=== PATIENT | female | born 1990 | race Caucasian/White ===

== ENCOUNTER 2020-07-28 18:57 | Observation (INO) | payer MEDICAID ==
[~2020-07-28] VITALS: Ht 162.6 cm; Wt 71.2 kg
[2020-07-28] MEDS ORDERED: VIT1TABL62 PO (19:29)
[2020-07-28] MEDS ORDERED: VIT1CAPS28 PO (19:29)
[2020-07-28] MEDS ORDERED: PREN-182 MT (19:29)
[2020-07-28] MEDS ORDERED: FERR325T6 PO (19:29)
[2020-07-28] MEDS: BUTORPHANOL TARTRATE 2 MG/ML VIAL IV PRN ×3 (19:34→22:31)
[2020-07-28] MEDS: LACTATED RINGERS 1,000 ML IV SCH ×2 (19:35→21:12)
[2020-07-28] MEDS ORDERED: ONDANSETRON HCL 4MG/2ML INJ IV PRN (20:00)
[2020-07-28] MEDS ORDERED: ONDANSETRON HCL 4MG/2ML INJ ONE (20:00)
[2020-07-28 20:17] LABS: BASOPHILS % 0.3 % (0.0-2.0); EOSINOPHILS % 1.2 % (0.0-5.0); HEMATOCRIT. 26.7 % (36.0-48.0); HEMOGLOBIN. 8.8 g/dL (12.0-16.0); LYMPHOCYTES % 27.4 % (20.0-50.0); MEAN CORPUSCULAR HEMOGLOBIN 27.1 pg (28.0-32.0); MEAN CORPUSCULAR VOLUME 82.2 fL (81.0-99.0); MEAN PLATELET VOLUME 9.8 fl (7.4-10.4); MONOCYTES % 6.5 % (2.0-8.0); NEUTROPHILS % 64.6 % (40.0-76.0); PLATELET 310 x1000/uL (130-400); RED BLOOD CELL COUNT 3.25 mill/uL (4.2-5.4); RED CELL DISTRIBUTION WIDTH 14.5 % (11.6-14.6)
[2020-07-28 20:19] LABS: CLARITY URINE CLEAR (CLEAR); COLOR URINE YELLOW (YELLOW); KETONES URINE TRACE (NEGATIVE); LEUKOCYTE ESTERASE URINE 1+ (NEGATIVE); NITRITE URINE NEGATIVE (NEGATIVE); OCCULT BLOOD URINE NEGATIVE (NEGATIVE); PROTEIN URINE NEGATIVE (NEGATIVE); SPECIFIC GRAVITY URINE 1.022 (1.005-1.030); UROBILINOGEN URINE 0.2 E.U./dL (0.2-1.0)
[2020-07-28 20:23] LABS: CHLORIDE 107 mEq/L (98-107)
[2020-07-28 20:35] LABS: METHADONE URINE SCREEN NEGATIVE (NEGATIVE); OPIATES URINE SCREEN NEGATIVE (NEGATIVE); PHENCYCLIDINE URINE SCREEN NEGATIVE (NEGATIVE)
[2020-07-28 20:36] LABS: *AMPHETAMINES SCREEN URINE NEGATIVE (NEGATIVE); *BARBITURATES SCREEN URINE NEGATIVE (NEGATIVE); *BENZODIAZEPINES SCREEN URINE NEGATIVE (NEGATIVE); *COCAINE SCREEN URINE NEGATIVE (NEGATIVE); CANNABINOID URINE SCREEN NEGATIVE (NEGATIVE)
[2020-07-28 22:31] VITALS: BP 110/58
== END 2020-07-28 22:40 | disposition home or self-care (01) ==
LOC: 8 EST LDRP 18:57
PROVIDERS: ADMIT Obstetrics & Gynecology; ATTEND Obstetrics & Gynecology
DX: O21.2 Late vomiting of pregnancy (principal); O99.612 Diseases of the digestive system complicating pregnancy, second trimester; R19.7 Diarrhea, unspecified; O26.892 Other specified pregnancy related conditions, second trimester; R10.9 Unspecified abdominal pain; Z3A.27 27 weeks gestation of pregnancy; Z79.899 Other long term (current) drug therapy
CPT/HCPCS: 36415; 76857; 80053; 80305; 81003; 82731; 85025; 96361; 96374; 96375; 96376; G0378; J0595; J2405; 59025; A4315

== ENCOUNTER 2020-10-06 17:37 | Observation (INO) | payer MEDICAID ==
[~2020-10-06] VITALS: Ht 162.6 cm; Wt 76.2 kg
[~2020-10-06 17:37] MED LIST: FERR325T6 PO; PREN-182 MT; VIT1CAPS28 PO; VIT1TABL62 PO
[2020-10-06] MEDS ORDERED: DEXT 5%/LACTATED RINGERS 1,000 ML IV SCH (18:00)
[2020-10-06] MEDS ORDERED: ACETAMINOPHEN 500MG TABLET PO NR (18:30)
[2020-10-06] MEDS ORDERED: ONDANSETRON HCL 4MG/2ML INJ IV NR (18:30)
[2020-10-06 18:57] LABS: CHLORIDE 109 mEq/L (98-107)
== END 2020-10-06 19:10 | disposition home or self-care (01) ==
LOC: 8 EST LDRP 17:37
PROVIDERS: ADMIT Obstetrics & Gynecology; ATTEND Obstetrics & Gynecology
DX: O99.891 Other specified diseases and conditions complicating pregnancy (principal); M54.9 Dorsalgia, unspecified; O21.2 Late vomiting of pregnancy; O23.43 Unspecified infection of urinary tract in pregnancy, third trimester; Z3A.37 37 weeks gestation of pregnancy
CPT/HCPCS: 36415; 80053; 96374; G0378; J2405; 96360; 99281; J7121